=== PATIENT | male | born 1950 | race Asian ===

== ENCOUNTER 2017-08-05 18:34 | Emergency (ER) | payer OTHER ==
[~2017-08-05] VITALS: Ht 165.1 cm; Wt 56.7 kg
[2017-08-05 18:58] VITALS: Ht 165.1 cm; Wt 56.7 kg
[2017-08-05 20:05] LABS: BASOPHIL % 0.3 % (0-2); PLATELET COUNT 207 x10^3mcL (130-400); RED CELL DISTRIBUTION WIDTH 12.9 % (11.5-14.5)
[2017-08-05 20:18] LABS: CALCIUM 8.8 mg/dL (8.5-10.1); CARBON DIOXIDE 26.2 mmol/L (21-32); CREATININE SERUM 1.4 mg/dL (0.7-1.3)
[2017-08-05 20:23] LABS: BILIRUBIN TOTAL 0.52 mg/dL (0.20-1.00); TOTAL PROTEIN, SERUM 8.1 g/dL (6.4-8.2)
[2017-08-05 20:24] LABS: ALBUMIN 3.1 g/dL (3.4-5.0)
[2017-08-06 00:49] VITALS: BP 141/93
== END 2017-08-06 00:49 | disposition home or self-care (01) ==
LOC: ED 18:34
PROVIDERS: Emergency Medicine
DX: J18.9 Pneumonia, unspecified organism (principal); M79.1 Myalgia
CPT/HCPCS: J7030

== ENCOUNTER 2018-07-01 18:45 | Inpatient (IN) | payer OTHER, MEDICAID ==
[~2018-07-01] VITALS: Ht 157.5 cm; Wt 52.2 kg
[2018-07-01 19:20] VITALS: Ht 157.5 cm; Wt 52.2 kg
[2018-07-01 19:50] LABS: BASOPHIL % 0.5 % (0-2); PLATELET COUNT 138 x10^3mcL (130-400); RED CELL DISTRIBUTION WIDTH 13.5 % (11.5-14.5)
[2018-07-01 20:01] LABS: CALCIUM 9.2 mg/dL (8.5-10.1); CARBON DIOXIDE 25.2 mmol/L (21-32); CREATININE SERUM 1.8 mg/dL (0.7-1.3); POTASSIUM SERUM 4.6 mmol/L (3.5-5.1)
[2018-07-01 20:05] LABS: ALBUMIN 3.8 g/dL (3.4-5.0); BILIRUBIN TOTAL 0.5 mg/dL (0.20-1.00)
[2018-07-01 20:07] LABS: TOTAL PROTEIN, SERUM 8.9 g/dL (6.4-8.2)
[2018-07-01 22:51] LABS: UA SPECIFIC GRAVITY 1.025 (1.005-1.035); microscopic required? YES; urine erythrocyte NEGATIVE (NEGATIVE)
[2018-07-02] MEDS ORDERED: GLUCOPHAGE XR500 MG PO (00:40)
[2018-07-02] MEDS ORDERED: JANUVIA100 M1 PO (00:41)
[2018-07-02] MEDS ORDERED: GOOD SENSE OMEP20 MG (00:42)
[2018-07-02] MEDS ORDERED: LIPI20 PO (00:42)
[2018-07-02] MEDS ORDERED: AMLODIPINE BESY1 TA1 PO (00:43)
[2018-07-02 01:18] LABS: MAGNESIUM 1.7 mg/dL (1.8-2.4); PHOSPHOROUS 3.5 mg/dL (2.5-4.9)
[2018-07-02 02:32] LABS: AMPHETAMINE QUAL UR NONE DETECTED (See below)
[2018-07-02 04:40] VITALS: BP 156/62
[2018-07-02 04:52] LABS: BASOPHIL % 0.1 % (0-2); RED CELL DISTRIBUTION WIDTH 13.1 % (11.5-14.5)
[2018-07-02 04:53] LABS: PLATELET COUNT 116 x10^3mcL (130-400)
[2018-07-02 04:54] LABS: CARBON DIOXIDE 22.9 mmol/L (21-32); CREATININE SERUM 1.6 mg/dL (0.7-1.3); MAGNESIUM 1.5 mg/dL (1.8-2.4); PHOSPHOROUS 2.6 mg/dL (2.5-4.9); POTASSIUM SERUM 4.3 mmol/L (3.5-5.1)
[2018-07-02 07:54] VITALS: BP 130/59
[2018-07-02 11:59] VITALS: BP 150/62
[2018-07-02 16:15] VITALS: BP 145/60
[2018-07-02 21:54] VITALS: BP 150/61
[2018-07-03 05:44] VITALS: BP 150/71
[2018-07-03 06:40] LABS: CALCIUM 8.4 mg/dL (8.5-10.1); CARBON DIOXIDE 25.5 mmol/L (21-32); CREATININE SERUM 1.4 mg/dL (0.7-1.3); PHOSPHOROUS 2.2 mg/dL (2.5-4.9); POTASSIUM SERUM 3.9 mmol/L (3.5-5.1)
[2018-07-03 07:17] LABS: PLATELET COUNT 100 x10^3mcL (130-400)
[2018-07-03 08:15] VITALS: BP 120/60
[2018-07-03 12:06] VITALS: BP 150/66
[2018-07-03 12:36] LABS: SEGMENTED NEUTROPHILS 59 % (37-75)
[2018-07-03 12:37] LABS: BAND NEUTROPHIL 1 % (0-10); MONOCYTE 8 % (0-7); PLATELET MORPHOLOGY PLATELETS DECREASED; rbc morphology (normal/abnorm) NORMAL (NORMAL)
[2018-07-03 15:48] VITALS: BP 168/69
[2018-07-03 21:59] VITALS: BP 164/55
[2018-07-04 00:03] VITALS: BP 157/67
[2018-07-04 05:09] VITALS: BP 168/73
[2018-07-04 06:43] LABS: RED CELL DISTRIBUTION WIDTH 12.9 % (11.5-14.5)
[2018-07-04 06:58] LABS: PLATELET COUNT 117 x10^3mcL (130-400)
[2018-07-04 08:30] VITALS: BP 167/63
[2018-07-04 09:29] LABS: CALCIUM 8.5 mg/dL (8.5-10.1); CARBON DIOXIDE 23.1 mmol/L (21-32); CREATININE SERUM 1.4 mg/dL (0.7-1.3); POTASSIUM SERUM 3.9 mmol/L (3.5-5.1)
[2018-07-04 10:56] LABS: MONOCYTE 7 % (0-7); SEGMENTED NEUTROPHILS 57 % (37-75)
[2018-07-04 10:58] LABS: rbc morphology (normal/abnorm) NORMAL (NORMAL)
[2018-07-04 10:59] LABS: PLATELET MORPHOLOGY PLATELETS NORMAL
[2018-07-04 16:28] VITALS: BP 173/67
[2018-07-04 20:57] VITALS: BP 165/68
[2018-07-05 05:24] VITALS: BP 165/80
[2018-07-05 09:27] VITALS: BP 170/71
[2018-07-05] MEDS ORDERED: NOR10 PO (12:19)
[2018-07-05] MEDS ORDERED: APR25 PO (12:19)
[2018-07-05] MEDS ORDERED: LISINOPRIL10 MG PO (12:20)
[2018-07-05 13:11] VITALS: BP 129/55
[2018-07-05 17:00] VITALS: BP 147/76
== END 2018-07-05 19:53 | disposition short-term general hospital (02) | DRG 391 ==
LOC: ED 18:45 → MU 07-02 00:31
PROVIDERS: Emergency Medicine; ADMIT Family Medicine
DX: A08.4 Viral intestinal infection, unspecified (principal); N17.0 Acute kidney failure with tubular necrosis; I69.351 Hemiplegia and hemiparesis following cerebral infarction affecting right dominant side; E87.2 Acidosis; K59.00 Constipation, unspecified; E86.0 Dehydration; E11.9 Type 2 diabetes mellitus without complications; D64.9 Anemia, unspecified; E83.42 Hypomagnesemia; E78.5 Hyperlipidemia, unspecified; I10 Essential (primary) hypertension; Z68.20 Body mass index [BMI] 20.0-20.9, adult; Z79.84 Long term (current) use of oral hypoglycemic drugs; I69.320 Aphasia following cerebral infarction
CPT/HCPCS: 82962; 83880; 87046; 87046-59; 97110-GP; 97112-GP; 97116-GP; 97530-GP; J0360; J2405; J3475; J7030; Q0092